=== PATIENT | male | born 1960 | race Two or more races ===

== ENCOUNTER 2019-07-06 22:03 | Emergency (ER) | payer MEDICAID ==
[~2019-07-06] VITALS: Ht 177.8 cm; Wt 102.3 kg
[2019-07-06] MEDS ORDERED: STOOL SOFTENER PO (22:29)
[2019-07-06] MEDS ORDERED: HYDR-4069 PO (22:29)
[2019-07-06 23:30] VITALS: BP 125/78
== END 2019-07-06 23:46 | disposition home or self-care (01) ==
LOC: EMS 22:04
DX: K59.00 Constipation, unspecified (principal); Z48.00 Encounter for change or removal of nonsurgical wound dressing; Z90.89 Acquired absence of other organs

== ENCOUNTER 2021-08-29 02:23 | Emergency (ER) | payer MEDICAID ==
[~2021-08-29] VITALS: Ht 177.8 cm; Wt 102.3 kg
[~2021-08-29 02:23] MED LIST: HYDR-4069 PO; STOOL SOFTENER PO
[2021-08-29] MEDS ORDERED: KETOROLAC TROMETHAMINE 30 MG/ML VIAL IVP ONE (03:15)
[2021-08-29] MEDS ORDERED: SODIUM CHLORIDE 0.9% 1,000 ML IV ONE (03:15)
[2021-08-29 03:19] LABS: APPEARANCE,URINE CLEAR (CLEAR); BILIRUBIN,URINE NEGATIVE (NEGATIVE); GLUCOSE, URINE (UA) NEGATIVE (NEGATIVE); KETONES,URINE NEGATIVE (NEGATIVE); LEUKOCYTE ESTERASE ,URINE NEGATIVE (NEGATIVE); NITRATE,URINE NEGATIVE (NEGATIVE); OCCULT BLOOD,URINE LARGE (NEGATIVE); PROTEIN,URINE NEGATIVE (NEGATIVE)
[2021-08-29 03:22] LABS: BACTERIA,URINE Few /HPF (None Seen); WBC,URINE 0-2 /HPF (0-5)
[2021-08-29] MEDS ORDERED: HYDR-4723 PO (04:02)
[2021-08-29] MEDS ORDERED: TAMS-13 PO (04:02)
[2021-08-29 04:30] VITALS: BP 145/74
== END 2021-08-29 04:20 | disposition home or self-care (01) ==
LOC: EMS 02:23
DX: N23 Unspecified renal colic (principal); Z90.89 Acquired absence of other organs
CPT/HCPCS: 81001; 96361; 96374; 99283; J1885; J7030

== ENCOUNTER 2022-01-23 21:24 | Emergency (ER) | payer MEDICAID ==
[~2022-01-23] VITALS: Ht 180.3 cm; Wt 104.5 kg
[~2022-01-23 21:24] MED LIST changes: +HYDR-4723 PO; +TAMS-13 PO
[2022-01-23 22:06] LABS: APPEARANCE,URINE HAZY (CLEAR); BILIRUBIN,URINE NEGATIVE (NEGATIVE); GLUCOSE, URINE (UA) NEGATIVE (NEGATIVE); LEUKOCYTE ESTERASE ,URINE NEGATIVE (NEGATIVE); NITRATE,URINE NEGATIVE (NEGATIVE); OCCULT BLOOD,URINE LARGE (NEGATIVE); PROTEIN,URINE 30-70 mg/dL (NEGATIVE); SPECIFIC GRAVITIY, URINE 1.021 (1.003-1.030)
[2022-01-23 22:11] LABS: BASOPHILS % (AUTO) 0.3 % (0.0-2.0); EOSINOPHILS % (AUTO) 1.6 % (1.0-6.0); HEMATOCRIT 36.6 % (41-53); HEMOGLOBIN 12.4 g/dL (13.5-17.5); LYMPHOCYTES # (AUTO) 0.7 K/uL (1.0-4.8); LYMPHOCYTES % (AUTO) 17.9 % (22.0-44.0); MEAN CORPUSCULAR HGB CONC 33.9 G/dL (31.0-37.0); MEAN CORPUSCULAR VOLUME 92 fL (80-100); MONOCYTES # (AUTO) 0.6 K/uL (0.1-1.0); MONOCYTES % (AUTO) 15.6 % (2.0-9.0); NEUTROPHILS # (AUTO) 2.4 K/uL (1.8-7.7); NEUTROPHILS % (AUTO) 64.6 % (40.0-70.0); RED CELL DISTRIBUTION WIDTH 13.5 % (11.5-14.5)
[2022-01-23 22:17] LABS: BACTERIA,URINE Rare /HPF (None Seen); RBC,URINE >100 /HPF (0-2); SQUAMOUS EPITHELIAL CELL,UR Rare /LPF (None Seen); WBC,URINE 0-2 /HPF (0-5)
[2022-01-23 22:20] LABS: PLATELET COUNT (AUTO) 85 K/uL (150-450); PLATELET MORPHOLOGY COMMENT LARGE PLTS PRESENT
[2022-01-23 22:24] LABS: ANION GAP 5 mmol/L (8-16); CALCIUM, TOTAL 9.1 mg/dL (8.8-10.5); CARBON DIOXIDE 30 mmol/L (22-29); CHLORIDE 102 mmol/L (98-107); CREATININE 0.98 mg/dL (0.60-1.30); GLOMERULAR FILTR. RATE CALC > 60 mL/min (>60); GLUCOSE,RANDOM 95 mg/dL (70-110); POTASSIUM 4.1 mmol/L (3.5-5.1); SODIUM SERUM 137 mmol/L (136-145); UREA NITROGEN, BLOOD 11 mg/dL (7-18)
[2022-01-23 22:30] LABS: ALANINE AMINOTRANSFERASE 75 U/L (12-78); ALBUMIN 3.7 g/dL (3.4-5.0); ALKALINE PHOSPHATASE 132 U/L (46-116); ASPARTATE AMINOTRANSFERASE 78 U/L (15-37); BILIRUBIN,TOTAL 1.1 mg/dL (0.1-1.0); LIPASE 142 U/L (73-393); TOTAL PROTEIN, SERUM 7.4 g/dL (6.4-8.2)
[2022-01-23] MEDS ORDERED: SODIUM CHLORIDE 0.9% 1,000 ML IV ONE (22:45)
[2022-01-23] MEDS ORDERED: PENICILLIN V POTASSIUM 500 MG TABLET PO ONE (22:45)
[2022-01-23] MEDS ORDERED: MORPHINE SULFATE 4 MG/ML SYRINGE IVP ONE (22:45)
[2022-01-23] MEDS ORDERED: ONDANSETRON HCL 4 MG/2 ML VIAL IVP ONE (22:45)
[2022-01-23] MEDS ORDERED: KETOROLAC TROMETHAMINE 30 MG/ML VIAL IVP ONE (22:45)
[2022-01-24] MEDS ORDERED: HYDR-4723 PO (00:45)
[2022-01-24] MEDS ORDERED: CEPH-558 PO (00:45)
[2022-01-24] MEDS ORDERED: TAMS-13 PO (00:45)
[2022-01-24] MEDS ORDERED: HYDROCODONE/ACETAMINOPHEN 5-325 MG TABLET PO ONE (00:45)
[2022-01-24] MEDS ORDERED: POLY238P PO (00:45)
[2022-01-24 00:53] VITALS: BP 152/89
== END 2022-01-24 00:56 | disposition home or self-care (01) ==
LOC: EMS 21:31
DX: N20.9 Urinary calculus, unspecified (principal); H10.9 Unspecified conjunctivitis; K59.00 Constipation, unspecified; Z87.448 Personal history of other diseases of urinary system; Z85.05 Personal history of malignant neoplasm of liver; Z90.49 Acquired absence of other specified parts of digestive tract; Z98.890 Other specified postprocedural states
CPT/HCPCS: 36415; 74176; 80053; 81001; 83690; 84484; 85025; 96361; 96374; 96375; 99284; J1885; J2270; J2405; J7030